=== PATIENT | male | born 1975 | race Caucasian/White ===

== ENCOUNTER 2021-05-13 08:49 | Emergency (ER) | payer SELFPAY ==
[~2021-05-13] VITALS: Ht 182.8 cm; Wt 86.2 kg
[2021-05-13 09:59] LABS: BILIRUBIN Negative (Negative); BLOOD Negative (Negative); CLARITY Cloudy (Clear); COLOR Yellow (Yellow); GLUCOSE Negative (Negative); KETONE Negative (Negative); LEUKO ESTERASE Negative (Negative); NITRITE Negative (Negative); SPECIFIC GRAVITY 1.025 (1.001-1.030)
[2021-05-13 10:05] LABS: BACTERIA 3+; EPITHELIAL CELLS 0-2; RBC 0-2 rbc/hpf (0-2); WBC 0-2 wbc/hpf (0-5)
== END 2021-05-13 10:39 | disposition home or self-care (01) ==
LOC: ED 08:49
PROVIDERS: Student in an Organized Health Care Education/Training Program
DX: T74.21XA Adult sexual abuse, confirmed, initial encounter (principal); Y92.89 Other specified places as the place of occurrence of the external cause

== ENCOUNTER 2022-07-18 21:55 | Emergency (ER) | payer OTHER ==
[~2022-07-18] VITALS: Ht 180.3 cm; Wt 90.7 kg
== END 2022-07-18 22:32 | disposition home or self-care (01) ==
LOC: ED 21:55
DX: U07.1 COVID-19 (principal)